=== PATIENT | male | born 1960 | race Caucasian/White ===

== ENCOUNTER 2016-07-22 07:26 | Emergency (ER) | payer OTHER ==
[~2016-07-22] VITALS: Ht 177.8 cm; Wt 108.9 kg
[2016-07-22 07:51] LABS: ABSOLUTE BASOPHIL COUNT 0.1 /CUMM (0.0-0.2); ABSOLUTE EOSINOPHIL COUNT 0.1 /CUMM (0.0-0.7); ABSOLUTE GRANULOCYTE CT 6.5 /CUMM (1.4-6.5); ABSOLUTE LYMPH COUNT 2.2 /CUMM (1.2-3.4); ABSOLUTE MONOCYTE COUNT 0.5 /CUMM (0.10-0.60); BASOPHIL % 0.6 % (0.0-2.0); EOSINOPHIL % 0.7 % (0-5); GRANULOCYTE % 69.7 % (42.2-75.2); MEAN CORPUSCULAR HGB 30.6 PG (27.0-31.0); MEAN CORPUSCULAR HGB CONC 33.9 G/DL (33.0-37.0); MEAN CORPUSCULAR VOLUME 90.5 FL (80.0-94.0); MEAN PLATELET VOLUME 8.4 FL (7.4-10.4); PLATELET COUNT 282 /CUMM (130-400); RBC DISTRIBUTION WIDTH 13.3 % (11.5-14.5); RED BLOOD CELL CT 5.52 /CUMM (4.70-6.10); WHITE BLOOD CELL COUNT 9.3 /CUMM (4.8-10.8)
--- NOTE | 2016-07-22 08:29 | RADIOLOGY REPORT ---
EXAMINATION: XR PORTABLE CHEST CLINICAL INFORMATION: Chest pain COMPARISON: None TECHNIQUE: Portable AP view of the chest was obtained. FINDINGS: Heart size is top normal to borderline enlarged. Pulmonary vascularity is within normal limits. The aorta is normal in contour. The lungs are mildly hypoexpanded but grossly clear. No focal consolidation or atelectasis is seen. There is no pneumothorax or pleural effusion. No acute bony abnormality is seen. IMPRESSION: Borderline heart size. No pulmonary edema. Mildly hypoexpanded but clear lungs with no acute finding..
--- NOTE | 2016-07-22 08:39 | ED CARDIAC/CP/PALPITATIONS ---
History of Present Illness General Chief Complaint: Chest Pain Stated Complaint: C/P Source: patient, family, old records Exam Limitations: no limitations Vital Signs & Intake/Output Vital Signs & Intake/Output Vital Signs Date Time Temp Pulse Resp B/P Pulse O2 O2 Flow FiO2 Ox Delivery Rate 07/22 1139 97.8 95 20 130/83 96 Room Air 07/22 1014 97.3 86 20 96/62 95 Room Air 07/22 0843 110 18 107/65 98 Room Air 07/22 0835 98.6 85 18 135/88 98 Room Air 07/22 0810 84 18 157/79 98 Room Air 07/22 0734 97.1 112 20 154/96 98 Room Air Allergies Coded Allergies: MDX - Prochlorperazine (From COMPAZINE PO TAB 10 MG) (Intermediate, 12/07/10) MDX - Simvastatin (From ZOCOR) (Mild, 12/07/10) Triage Note: C/O CHEST PRESSURE X 10 MINUTES APPROXIMATELY 30 MINUTES [employer]. ALOS C/O DIDIZZINESS. EKG DONE ON ARRIVAL. STATES HE HASNT FELT WELL X 3 DAYS. WITH ACHING ALL OVER AND DIZZINESS. Triage Nurses Notes Reviewed? yes Onset: Just prior to arrival Duration: minute(s):, gone now Timing: recent history Quality/Severity: moderate, aching Location: substernal Radiation: jaw Activities at Onset: rest Prior Chest Pain/Card Workup: stress test Modifying Factors: Improves With: rest. Nitro Today/Relief: 0.4 mg x 1, provided by ED, no relief Aspirin Today: 325 mg x 1, provided by ED Associated Symptoms: dizziness HPI: Shortly prior to admission patient complained of substernal chest pain described as pressure radiating to his left jaw lasting 10 minutes resolving with rest no change with exertion associated with dizziness. 3 days ago he felt generalized body aches and malaise with decreased appetite. He reports having a stress test many years ago that was negative but a strong family history of cardiac disease. He denies fever chills nausea vomiting diarrhea abdominal pain shortness of breath headache dysuria rash bleeding Past History Travel History Traveled to [place] past 21 day No Medical History Any Pertinent Medical History? see below for history Cardiovascular: hypertension, hyperlipidemia Gastrointestinal: GERD Musculoskeletal: osteoarthritis Blood Disorders: NONE Cancer(s): NONE Surgical History Surgical History: non-contributory Psychosocial History What is your primary language Japanese Tobacco Use: Never used ETOH Use: occasional use Family History Hx Contributory? No Review of Systems Review of Systems Constitutional: Reports: no symptoms. EENTM: Reports: no symptoms. Respiratory: Reports: no symptoms. Cardiovascular: Reports: see HPI, chest pain. GI: Reports: no symptoms. Genitourinary: Reports: no symptoms. Musculoskeletal: Reports: no symptoms. Skin: Reports: no symptoms. Neurological/Psychological: Reports: no symptoms. Hematologic/Endocrine: Reports: no symptoms. Immunologic/Allergic: Reports: no symptoms. All Other Systems: Reviewed and Negative Physical Exam Physical Exam General Appearance: well developed/nourished, alert, awake, anxious, mild distress, obese Head: atraumatic, normal appearance Eyes: Bilateral: normal appearance, PERRL, EOMI. Ears, Nose, Throat: normal pharynx, normal ENT inspection, hearing grossly normal Neck: normal inspection, supple, full range of motion, no midline tenderness Respiratory: normal breath sounds, chest non-tender, no respiratory distress, quiet respiration, lungs clear Cardiovascular: regular rate/rhythm, normal peripheral pulses, norml femoral pulses equa Peripheral Pulses: 4+ carotid (R), 4+ carotid (L) Gastrointestinal: normal bowel sounds, soft, non-tender, no organomegaly Back: normal inspection, normal range of motion Extremities: normal inspection, normal capillary refill, normal range of motion, no edema Neurologic/Psych: no motor/sensory deficits, awake, alert, oriented x 3, normal gait, normal mood/affect, applied anthropologist II-XII nml as tested Reflexes: 2+: bicep (R), bicep (L). Skin: intact, normal color, warm/dry Lymphatic: no anterior cervical lindy Core Measures ACS in differential dx? Yes Severe Sepsis Present: No Septic Shock Present: No Progress Differential Diagnosis: AMI, hyperkalemia, hypovolemia, musculoskeletal pain, pneumonia, PUD/GERD Plan of Care: Orders Procedure Date/time Status TROPONIN LEVEL 07/22 1140 Complete EKG 07/22 1133 Active TROPONIN LEVEL 07/22 0734 Complete MAGNESIUM 07/22 0734 Complete COMPREHENSIVE METABOLIC PANEL 07/22 0734 Complete CHOLESTEROL 07/22 0734 Complete CBC WITHOUT DIFFERENTIAL 07/22 0734 Complete EKG 07/22 0727 Active Laboratory Tests 07/22/16 1141: Troponin I < 0.01 07/22/16 0735: Anion Gap 12, Estimated GFR > 60, BUN/Creatinine Ratio 24.0, Glucose 105 H, Calcium 10.2, Magnesium 2.0, Total Bilirubin 1.5 H, AST 29, ALT 52, Alkaline Phosphatase 89, Troponin I < 0.01, Total Protein 8.7 H, Albumin 4.8, Globulin 3.9, Albumin/Globulin Ratio 1.2, Cholesterol 232 H, CBC w Diff NO MAN DIFF REQ, RBC 5.52, MCV 90.5, MCH 30.6, RDW 13.3, MPV 8.4, Gran % 69.7, Lymphocytes % 23.9 , Monocytes % 5.1, Eosinophils % 0.7, Basophils % 0.6, Absolute Granulocytes 6.5 , Absolute Lymphocytes 2.2, Absolute Monocytes 0.5, Absolute Eosinophils 0.1, Absolute Basophils 0.1, PUBS MCHC 33.9 Initial ED EKG: normal axis, normal intervals, normal p-waves, normal QRS complex, normal sinus rhythm Comments: 2nd EKG NSR 2nd troponin < 0.01 Departure Departure Time of Disposition: 7 Disposition: HOME OR SELF CARE Condition: Stable Clinical Impression Primary Impression: Chest pain syndrome Referrals: LAUREN WYATT,JAMILA BONILLA MD,OLEKSANDR Pierce (PCP/Family) Departure Forms: Customer Survey General Discharge Information Critical Care Note Critical Care Note Critical Care Time: 30-74 min (40)
[2016-07-22 13:00] VITALS: BP 132/85
== END 2016-07-22 13:01 ==
LOC: ERH 07:26
PROVIDERS: Emergency Medicine
DX: R07.1 Chest pain on breathing (principal); M79.1 Myalgia; R42 Dizziness and giddiness
CPT/HCPCS: 93005; 93010; J3490

== ENCOUNTER 2016-07-24 05:53 | Emergency (ER) | payer OTHER ==
[~2016-07-24] VITALS: Ht 177.8 cm; Wt 108.0 kg
--- NOTE | 2016-07-24 05:56 | ED CARDIAC/CP/PALPITATIONS ---
History of Present Illness General Chief Complaint: Palpitations Stated Complaint: " CHEST PRESSURE SINCE 0500AM, HEART FLUTTERING" Source: patient, family, EMS Exam Limitations: no limitations Vital Signs & Intake/Output Vital Signs & Intake/Output Vital Signs Date Time Temp Pulse Resp B/P Pulse O2 O2 Flow FiO2 Ox Delivery Rate 07/24 1024 97.2 86 18 129/80 98 Room Air 07/24 0819 97.0 99 18 130/81 97 Room Air 07/24 0622 Room Air 07/24 0605 96.6 109 18 135/84 100 Room Air Triage Nurses Notes Reviewed? yes Onset: Abrupt Duration: minute(s): (FEW) Timing: single episode today Quality/Severity: moderate Location: central Activities at Onset: GETTING READY FOR WORK Associated Symptoms: PALPITATIONS, FLUTTERING, SKIPPED BEAT HPI: This is a 56 old male with history of acid reflux: Hypertension and dyslipidemia presents to ER with chief complaint of sudden onset of palpitations and irregular rhythm this morning. He states he was getting right for work when he felt it. Symptoms lasted for a few minutes. He had 2 episodes at home and then [address] to the hospital. Denies any chest pain or shortness of breath. Patient had symptoms on while at work of dizziness, lightheadedness and feeling cold. He was at home for the next 3 days with similar symptoms. On Saturday morning he woke up with left-sided dull neck pain chest pressure. He was seen in the emergency department by Dr. Cuadra. He stayed for 2 sets of cardiac enzymes both of which were negative. Yesterday he had a first evaluation by Dr. Lowery. He is scheduled tomorrow for an echocardiogram and for a nuclear stress test. He has a very strong family history for coronary disease. He denies any neck pain chest pain or pressure at this time. He states that his palpitations have gone away. (YADIRA WYATT,SHWANEE) Allergies Coded Allergies: prochlorperazine (From Compazine) (Intermediate, UNKNOWN 07/24/16) simvastatin (Mild, UNKNOWN 07/24/16) Reconcile Medications Amlodipine Besylate 5 MG TABLET 5 MG PO DAILY HTN (Reported) Aspirin (Ecotrin*) 81 MG TABLET.DR 162 MG PO DAILY HEART (Reported) Colesevelam HCl (Welchol) 3.75 GRAM POWD.PACK 3.75 G PO DAILY GERD (Reported) Lisinopril 20 MG TABLET 20 MG PO NIGHTLY HTN (Reported) (VENECIA WYATT,ADEBAYO) Past History Travel History Traveled to [place] past 21 day No Medical History Any Pertinent Medical History? see below for history Cardiovascular: hypertension, hyperlipidemia Gastrointestinal: GERD Musculoskeletal: osteoarthritis Blood Disorders: NONE Cancer(s): NONE Surgical History Surgical History: non-contributory Psychosocial History What is your primary language Slovenian Family History Comment: Father with quintuple bypass in his 60s Mother of AL in her 60s Brother with 2 stents in his 50s sister with inherited clotting disorder Hx Contributory? Yes (SHAWNEE MAY MD) Review of Systems Review of Systems Constitutional: Denies: chills, fever, malaise, weakness. EENTM: Reports: no symptoms. Respiratory: Denies: cough, short of breath, sputum production. Cardiovascular: Reports: palpitations. Denies: chest pain, peripheral edema, syncope. GI: Denies: abdominal pain. Genitourinary: Reports: no symptoms. Musculoskeletal: Denies: back pain. Skin: Reports: no symptoms. Neurological/Psychological: Reports: anxiety. Hematologic/Endocrine: Denies: bruising, bleeding, polyuria, polydipsia. Immunologic/Allergic: Denies: splenectomy. All Other Systems: Reviewed and Negative (SHAWNEE MAY MD) Physical Exam Physical Exam General Appearance: well developed/nourished, alert, awake, anxious, mild distress, obese Head: atraumatic, normal appearance Eyes: Bilateral: normal appearance, PERRL, EOMI. Ears, Nose, Throat: hearing grossly normal Neck: normal inspection, supple, full range of motion Respiratory: normal breath sounds, chest non-tender, no respiratory distress Cardiovascular: tachycardia Peripheral Pulses: 2+ radial (R), 2+ radial (L) Gastrointestinal: normal bowel sounds, soft, non-tender Back: normal inspection, normal range of motion Extremities: normal inspection, normal capillary refill, normal range of motion, no edema Neurologic/Psych: no motor/sensory deficits, awake, alert, oriented x 3 Skin: intact, normal color, warm/dry Core Measures ACS in differential dx? No Severe Sepsis Present: No Septic Shock Present: No (SHAWNEE MAY MD) Progress Differential Diagnosis: AMI, aortic dissection, atrial fibrillation, PSVT, pulmonary embolism, PVCs/PACs, unstable angina Plan of Care: Orders Procedure Date/time Status TROPONIN LEVEL 07/24 919 Complete Telemetry/Lining [employer] Sewer 07/24 609 Active THYROID STIMULATING HORMONE 07/24 609 Complete TROPONIN LEVEL 07/24 609 Complete PARTIAL THROMBOPLASTIN TIME 07/24 609 Complete PROTHROMBIN TIME 07/24 609 Complete FREE T4 07/24 609 Complete D-DIMER 07/24 609 Complete COMPREHENSIVE METABOLIC PANEL 07/24 609 Complete CBC WITHOUT DIFFERENTIAL 07/24 609 Complete EKG 07/24 554 Active Laboratory Tests 07/24/16 0925: Troponin I < 0.01 07/24/16 0619: Anion Gap 11, Estimated GFR > 60, BUN/Creatinine Ratio 20.0, Glucose 118 H, Calcium 10.0, Total Bilirubin 1.3, AST 22, ALT 41, Alkaline Phosphatase 77, Troponin I < 0.01, Total Protein 8.1, Albumin 4.5, Globulin 3.6, Albumin/ Globulin Ratio 1.3, TSH 1.200, Free T4 1.07, PT 12.8 H, INR 1.22 H, APTT 33, D -Dimer 347 H, CBC w Diff NO MAN DIFF REQ, RBC 5.32, MCV 90.7, MCH 30.7, RDW 13.3, MPV 8.2, Gran % 72.8, Lymphocytes % 19.1 L, Monocytes % 4.7, Eosinophils % 0.8, Basophils % 2.6 H, Absolute Granulocytes 6.2, Absolute Lymphocytes 1.6, Absolute Monocytes 0.4, Absolute Eosinophils 0.1, Absolute Basophils 0.2, PUBS MCHC 33.8 Initial ED EKG: SINUS TACHYCARDIA Rhythm Strip: normal sinus rhythm Hand-Off Endorsed To: ADEBAYO CUADRA MD Endorsed Time: 0700 Pending: consult (cardiology), labs (SHAWNEE MAY MD) Departure Departure Condition: Stable Clinical Impression Primary Impression: Palpitations Departure Forms: Customer Survey General Discharge Information (SHAWNEE MAY MD) Departure Time of Disposition: 1037 Disposition: HOME OR SELF CARE Referrals: ISAC WYATT,DILAN BONILLA MD,OLEKSANDR Pierce (PCP/Family) (ADEBAYO CUADRA MD) Critical Care Note Critical Care Note Critical Care Time: non-applicable (SHAWNEE MAY MD)
[2016-07-24] MEDS ORDERED: LISINOPRIL20 M1 PO (06:25)
[2016-07-24] MEDS ORDERED: ASPIRIN EC81 M1 PO (06:25)
[2016-07-24] MEDS ORDERED: AMLODIPINE BESYL5 M1 PO (06:25)
[2016-07-24] MEDS ORDERED: WELCHOL3.75 GM PO (06:26)
[2016-07-24 06:29] LABS: ABSOLUTE BASOPHIL COUNT 0.2 /CUMM (0.0-0.2); ABSOLUTE EOSINOPHIL COUNT 0.1 /CUMM (0.0-0.7); ABSOLUTE GRANULOCYTE CT 6.2 /CUMM (1.4-6.5); ABSOLUTE LYMPH COUNT 1.6 /CUMM (1.2-3.4); ABSOLUTE MONOCYTE COUNT 0.4 /CUMM (0.10-0.60); BASOPHIL % 2.6 % (0.0-2.0); EOSINOPHIL % 0.8 % (0-5); GRANULOCYTE % 72.8 % (42.2-75.2); HEMATOCRIT 48.3 % (42-52); MEAN CORPUSCULAR HGB 30.7 PG (27.0-31.0); MEAN CORPUSCULAR HGB CONC 33.8 G/DL (33.0-37.0); MEAN CORPUSCULAR VOLUME 90.7 FL (80.0-94.0); MEAN PLATELET VOLUME 8.2 FL (7.4-10.4); PLATELET COUNT 267 /CUMM (130-400); RBC DISTRIBUTION WIDTH 13.3 % (11.5-14.5); RED BLOOD CELL CT 5.32 /CUMM (4.70-6.10); WHITE BLOOD CELL COUNT 8.5 /CUMM (4.8-10.8)
[2016-07-24 06:48] LABS: PT 12.8 SEC (9.4-12.5); PTT 33 SEC (25-37)
--- NOTE | 2016-07-24 08:44 | CT SCAN REPORT ---
EXAMINATION: CT ANGIOGRAM OF THE CHEST WITH AND WITHOUT CONTRAST (CT PULMONARY ANGIOGRAM FOR PE) CLINICAL INFORMATION: Palpitations, shortness of breath COMPARISON: No pertinent prior studies are available for comparison. TECHNIQUE: Prior to contrast administration, noncontrast localization images were obtained. Subsequently, multidetector volumetric imaging was performed from the thoracic inlet to below the diaphragms following the administration of 120 mL Optiray 350 intravenous contrast. No contrast reaction reported Sagittal, coronal, and MIP oblique sagittal reformatted images were obtained on the CT workstation, uploaded to PACS, and reviewed. Total exam dose-length product 569.56 mGy-cm FINDINGS: QUALITY OF STUDY/CONTRAST BOLUS: Suboptimal. PULMONARY ARTERIES: No central or segmental pulmonary emboli. THORACIC AORTA: No aneurysm or dissection. LUNG: No focal consolidation or pneumothorax. 0.3 cm pulmonary nodule anterior right upper lobe (118/474). Calcified granuloma superior segment right lower lobe. PLEURA: No pleural effusion or pneumothorax. MEDIASTINUM: Normal heart size. No pericardial effusion. No hilar or mediastinal lymphadenopathy. Coronary artery calcifications. No evidence of septal bowing or right heart strain. CHEST WALL/AXILLA: No axillary or internal mammary lymphadenopathy. OSSEOUS STRUCTURES: No acute or suspicious osseous abnormality. UPPER ABDOMEN: Unremarkable. No reflux of contrast into the hepatic veins to suggest elevated right heart pressures. IMPRESSION: 1. No evidence of acute cardiopulmonary process. 2. 0.3 cm pulmonary nodule right upper lobe. Various management parameters for solitary pulmonary nodules are in the literature. According to the Fleischner Society, recommendations for pulmonary nodules are as follows: Nodule size < or = to 4 mm in LOW RISK PATIENTS: No follow up needed. Nodule size < or = to 4 mm in HIGH RISK PATIENTS: Follow up CT at 12 months; if unchanged, no further follow up. VTE: negative
[2016-07-24 10:24] VITALS: BP 129/80
== END 2016-07-24 10:56 ==
LOC: ERH 05:53
PROVIDERS: Emergency Medicine
DX: R00.2 Palpitations (principal); R42 Dizziness and giddiness
CPT/HCPCS: 93005; 93010; 96374